=== PATIENT | male | born 1945 | race Caucasian/White ===

== ENCOUNTER 2018-10-17 22:55 | Emergency (ER) | payer OTHER, MEDICAID ==
[~2018-10-17] VITALS: Ht 177.8 cm; Wt 79.5 kg
[2018-10-18] MEDS ORDERED: LORA0.5T2 PO (00:47)
[2018-10-18] MEDS ORDERED: DIVA500T52 PO (00:47)
[2018-10-18] MEDS ORDERED: TRAZ-220 PO (00:47)
[2018-10-18] MEDS ORDERED: ATOR10TA84 PO (00:47)
[2018-10-18] MEDS ORDERED: QUET25TA PO (00:47)
[2018-10-18 01:24] LABS: BASOPHILS % (AUTO) 0.9 % (0.0-2.0); EOSINOPHILS % (AUTO) 1.9 % (1.0-6.0); HEMATOCRIT 37.5 % (41-53); HEMOGLOBIN 13.1 g/dL (13.5-17.5); LYMPHOCYTES # (AUTO) 1.2 K/uL (1.0-4.8); LYMPHOCYTES % (AUTO) 23.1 % (22.0-44.0); MEAN CORPUSCULAR HEMOGLOBIN 33.4 pg (26.0-34.0); MEAN CORPUSCULAR VOLUME 96 fL (80-100); MONOCYTES # (AUTO) 0.5 K/uL (0.1-1.0); MONOCYTES % (AUTO) 9.1 % (2.0-9.0); NEUTROPHILS # (AUTO) 3.5 K/uL (1.8-7.7); PLATELET COUNT (AUTO) 196 K/uL (150-450); RED BLOOD CELL COUNT(AUTO) 3.93 MIL/uL (4.50-5.90); RED CELL DISTRIBUTION WIDTH 13.8 % (11.5-14.5)
[2018-10-18 01:33] LABS: ANION GAP 5 mmol/L (8-16); CALCIUM, TOTAL 8.3 mg/dL (8.8-10.5); CARBON DIOXIDE 32 mmol/L (22-29); CHLORIDE 107 mmol/L (98-107); CREATININE 0.99 mg/dL (0.60-1.30); GLUCOSE,RANDOM 93 mg/dL (70-110); POTASSIUM 3.7 mmol/L (3.5-5.1); SODIUM SERUM 144 mmol/L (136-145); UREA NITROGEN, BLOOD 19 mg/dL (7-18)
[2018-10-18 01:37] LABS: GLOMERULAR FILTR. RATE CALC > 60 mL/min (>60)
[2018-10-18 01:41] LABS: ALANINE AMINOTRANSFERASE 23 U/L (12-78); ALBUMIN 3.5 g/dL (3.4-5.0); ALKALINE PHOSPHATASE 71 U/L (46-116); ASPARTATE AMINOTRANSFERASE 17 U/L (15-37); BILIRUBIN,TOTAL 0.4 mg/dL (0.1-1.0); TOTAL PROTEIN, SERUM 6.6 g/dL (6.4-8.2)
[2018-10-18] MEDS ORDERED: DiphenhydrAMINE HCL 50 MG/ML VIAL IM ONE (02:15)
[2018-10-18] MEDS ORDERED: LORazepam 2 MG/ML VIAL IM ONE (02:15)
[2018-10-18] MEDS ORDERED: POVIDONE-IODINE 10% 15 ML SOLUTION UD ONE (02:41)
[2018-10-18 04:21] VITALS: BP 131/83
== END 2018-10-18 04:59 | disposition home or self-care (01) ==
LOC: EMS 22:56
DX: F03.91 Unspecified dementia, unspecified severity, with behavioral disturbance (principal)
CPT/HCPCS: 36415; 80053; 81002; 85025; 93005; 96372; 99285; G0480; J1200; J2060